=== PATIENT | female | born 1995 | race Two or more races ===

== ENCOUNTER 2018-10-08 22:53 | Emergency (ER) | payer MEDICAID ==
[~2018-10-08] VITALS: Ht 167.6 cm; Wt 54.9 kg
--- NOTE | 2018-10-08 23:13 | NUR ---
PT PRESENTED TO THE ER WTIH A C/O PALPATATIONS X 4 HRS. PT TOOK AN EXTRACT RECOMMENDED BY HER PMD AND PT'S HR DROPPED. PT STATED THAT HER HR WAS 140 4 HRS AGO AND 120 AN HOUR AGO. PT'S HR IS NOW 109. PT FELT THAT HER BP WAS ELEVATED AT THAT TIME.
[2018-10-08] MEDS ORDERED: IV NS 0.9% 1,000 ML BAG IV ONE (23:30)
--- NOTE | 2018-10-08 23:44 | NUR ---
URINE SAMPLE SENT TO LAB. BLOOD DRAWN AND SENT TO LAB.
[2018-10-08 23:48] LABS: BASOPHILS % (AUTO) 0.3 % (0.0-2.0); EOSINOPHILS % (AUTO) 0.9 % (0.0-6.0); HEMATOCRIT 40 % (33-45); HEMOGLOBIN 13.4 g/dL (11.5-14.8); LYMPHOCYTES # (AUTO) 0.9 /CMM (0.8-4.8); LYMPHOCYTES % (AUTO) 16.7 % (20.0-44.0); MEAN CORPUSCULAR HGB CONC 34 g/dl (31.0-36.0); MEAN CORPUSCULAR VOLUME 88 fL (82-100); MONOCYTES # (AUTO) 0.9 /CMM (0.1-1.30); MONOCYTES % (AUTO) 16.8 % (2.0-12.0); NEUTROPHILS # (AUTO) 3.5 /CMM (1.8-8.9); NEUTROPHILS % (AUTO) 65.3 % (43.0-81.0); PLATELET COUNT (AUTO) 166 /CMM (150-450); WHITE BLOOD COUNT (AUTO) 5.3 K/uL (4.3-11.0)
[2018-10-08 23:52] LABS: APPEARANCE,URINE Slightly Cloudy (CLEAR); BILIRUBIN,URINE Negative (NEGATIVE); BLOOD, URINE Negative Ery/uL (NEGATIVE); COLOR,URINE Yellow (YELLOW); KETONES,URINE Negative (NEGATIVE); LEUKOCYTE ESTERASE ,URINE Negative (NEGATIVE); NITRITE, URINE Negative (NEGATIVE); PH,URINE 6.5 (5.0-8.0); PROTEIN,URINE Negative (NEGATIVE); UGLUCOSE Negative (NEGATIVE); UROBILINOGEN,URINE 0.2 EU/dL (0.2)
--- NOTE | 2018-10-08 23:57 | NUR ---
US TECH ARRIVED AND IS AT THE BEDSIDE.
[2018-10-09] LABS: CALCIUM, SERUM 8.8 mg/dL (8.5-10.1); CREATININE 0.5 mg/dL (0.6-1.3); POTASSIUM 3.4 mmol/L (3.5-5.1)
--- NOTE | 2018-10-09 | NUR ---
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
[2018-10-09 00:05] LABS: ALBUMIN 3.6 g/dL (3.4-5.0); BILIRUBIN,DIRECT 0.1 mg/dL (0.0-0.2); BILIRUBIN,TOTAL 0.2 mg/dL (0.2-1.0); TOTAL PROTEIN, SERUM 7.5 g/dL (6.4-8.2)
[2018-10-09 00:50] LABS: LYMPHOCYTES % (MANUAL) 13 % (16-48); NEUTROPHILS % (MANUAL) 73 (42-76)
[2018-10-09 00:51] LABS: MONOCYTES % (MANUAL) 14 % (0-11.0)
[2018-10-09 01:12] VITALS: BP 115/67
== END 2018-10-09 01:13 | disposition home or self-care (01) ==
LOC: ER 22:54
DX: O26.891 Other specified pregnancy related conditions, first trimester (principal); R00.2 Palpitations; Z3A.08 8 weeks gestation of pregnancy
CPT/HCPCS: 36415; 76805; 80048; 80076; 81001; 84702; 85025; 93005; 99284; A4606; J7030; 81000-TC